=== PATIENT | female | born 1990 | race Caucasian/White ===

== ENCOUNTER → 2017-11-21 | Outpatient (CLI) | payer OTHER ==
[~2017-11-21] MED LIST: BCPILLS PO; IBUP-1050 PO
== END | disposition home or self-care (01) ==
LOC: C.PAPS 09:18
PROVIDERS: ATTEND Physician Assistant
DX: Z12.4 Encounter for screening for malignant neoplasm of cervix (principal)

== ENCOUNTER → 2017-11-21 | Outpatient (CLI) | payer OTHER | END | disposition home or self-care (01) | LOC: C.LABSPEC 17:06 | PROVIDERS: ATTEND Physician Assistant | DX: Z12.4 Encounter for screening for malignant neoplasm of cervix (principal) ==

== ENCOUNTER 2021-06-11 19:27 | Inpatient (IN) ==
[2021-06-11] MEDS ORDERED: OXYTOCIN 30 UNITS/500 ML BAG IV PRN ×2 (19:44)
[2021-06-11] MEDS: LACTATED RINGER'S 1,000 ML IV PRN (20:15)
[2021-06-11 20:34] LABS: Hematocrit (blood only) 39.6 % (37-47); Hemoglobin 13.2 g/dL (12.0-16.0); Mean Corpuscular Hemoglobin 30.7 pg (25-34); Mean Corpuscular Hgb Conc 33.3 g/dL (32-36); Mean Corpuscular Volume 92.1 fL (80-100); Mean Platelet Volume 9.8 fL (7.4-10.4); Platelet Count 293 K/uL (130-400); RDW Coefficient of Variation 14.7 % (11.5-14.5); RDW Standard Deviation 48.2 fL (36.4-46.3)
--- NOTE | 2021-06-11 20:36 | History & Physical Report ---
Date of Service June 11, 2021 Assessment & Plan (1) Supervision of normal first : Plan: Admit to L&D, EFM/toco. Labs, IV. Given cervical change since yesterday and patient's level of pain with ctx, I believe patient is moving into active labor. OK to get epidural, she requests now. If ctx do not pick up attendant, she is agreeable to pitocin to augment. Admission and Anticipated Discharge Date Admission Date: June 11, 2021 History of Present Illness Chief Complaint: contractions, decreased movement Primary Care Provider: Vlad Dickey MD 31yo @ 38 12/30, presents to L&D after calling in with report of decreased movement throughout the day today and ctx Q8 min. She was seen at L&D overnight for r/o labor, discharged home after no cervical change. Upon arrival to L&D, movement was felt. Feeling ctx Q 4-6 min and reporting severe pain, asking for epidural. No vaginal bleeding or leaking fluid. complicated by h/o HSV - is taking prophylaxis, no current outbreak or prodromal symptoms. Allergies Allergy/AdvReac Type Severity Reaction Status Date / Time No Known Allergies Allergy Verified 06/11/21 19:32 Home Medications Medication Instructions Recorded Confirmed Type prenat.vits,nati,ppl-svcy-ufkms 1 tab PO DAILY 10/31/20 06/11/21 History valacyclovir 500 mg tablet 500 mg PO BID #60 tab 05/29/21 06/11/21 Rx (Valtrex) budesonide-formoterol HFA 80 2 puff INHALATION DAILY 06/11/21 06/11/21 History mcg-4.5 mcg/actuation aerosol inhaler (Symbicort) Patient History Medical History Acute sinusitis Encounter for weight management Genital herpes Heart rate fast Plantar warts Raynauds phenomenon Recurrent cold sores Varicella vaccination Surgical History History of tonsillectomy History of tooth extraction Family History Grandmother No problems noted. Grandmother (Paternal) Hypertension Grandfather (Paternal) Diabetes Grandmother (Maternal) Coronary heart disease Breast cancer Lung cancer Denies family history of Ovarian cancer Prostate cancer Myocardial infarction Colorectal cancer Social History Smoking Status: Never smoker Second Hand Exposure: No; Hx Alcohol Use: No Hx Substance Use: No Preferred Language: Hebrew Communication Ability: Effective Lead Network Engineer Required: No Beliefs That Will Affect Care: None marital status: marital status details: Jerod Brambila (29) [phone] Current Living Situation: Spouse Current Living Situation Comment: lives with spouse, no pets current occupational status: employed 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[employer] Other Information That Helps Us Care for You: No Feels Safe at Home: Yes Safety Concerns: Feels Safe At This Time Childhood Exposure to Second-Hand Smoke: No Dental Care, Regularly: Yes Physical Activity Frequency: 1-2 Times per Week Seatbelt Use: always Assistive Devices: Glasses Review of Systems All systems reviewed & are unremarkable except as noted in HPI & below Physical Exam Constitutional: WD/WN, vitals as above Respiratory: normal respiratory effort, lungs clear to auscultation no resp iratory distress Cardiovascular: Rate/Rhythm: regular rate and regular rhythm Gastrointestinal (Abdomen): Inspection/Auscultation: abdomen normal to inspection Percussion/Palpation: abdomen soft; abdomen nontender Gravid. No s/s chorio or abruption. Skin: no rashes, warm and dry Psychiatric: A+Ox3, euthymic affect Genitourinary: No obvious HSV lesions on exam. Cervix 4-5/100/0 Results & Data ([facility]) Vital Signs (Past 12 Hours) Vital Signs Temp Pulse Resp BP 06/11/21 19:32 36.5 C 96 H 20 125/86 06/11/21 19:29 36.5 C 96 H 18 125/86 Monitoring External Monitor FHT cat 1 Blum Q 4-8 min Coding Level of Care Code None Diagnoses Supervision of normal first Z34.00
[2021-06-11] MEDS ORDERED: ePHEDrine sulfate 50 MG/ML AMP ONE (20:39)
[2021-06-11] MEDS ORDERED: SODIUM CHLORIDE 0.9% INJ 10 ML VIAL ONE (20:39)
[2021-06-11] MEDS ORDERED: BUPIVACAINE 0.25% 30 ML VIAL ONE (20:39)
[2021-06-11] MEDS ORDERED: fentaNYL 2MCG/ML ROPIVACAINE 1.25MG/ML 100 ML BAG EPI ONE (20:40)
[2021-06-11] MEDS ORDERED: fentaNYL citrate 100 MCG/2 ML VIAL ONE (20:40)
[2021-06-11] MEDS ORDERED: NALOXONE HCL 0.4 MG/1 ML VIAL/CARP IV PRN (21:08)
[2021-06-11] MEDS ORDERED: diphenhydrAMINE 50 MG/ML VIAL IV PRN (21:08)
[2021-06-11] MEDS ORDERED: fentaNYL 2MCG/ML ROPIVACAINE 1.25MG/ML 100 ML BAG EPI PRN (21:08)
[2021-06-11] MEDS ORDERED: ONDANSETRON INJ 2 MG/ML 2 ML VIAL IV PRN (21:08)
[2021-06-11] MEDS ORDERED: NALBUPHINE HCL INJ 10 MG/ML AMP IV PRN (21:08)
[2021-06-11] MEDS ORDERED: ePHEDrine sulfate 50 MG/ML AMP IV PRN (21:08)
[2021-06-11] MEDS ORDERED: NALOXONE HCL 1 MG in SODIUM CHLORIDE 0.9% 1000ML 1,000 ML IV PRN (21:08)
--- NOTE | 2021-06-11 21:08 | Anesthesiology Consultation ---
Date of Service June 11, 2021 Assessment & Plan ASA ASA2 Proposed Anesthesia Anesthesia Type: Labor Epidural Risk / Benefits Reviewed With: PT / POA / Parent / Guardian, Accepts Plan and Informed Consent Obtained History Height/Weight Height: 5 ft 8 in Weight: 111.13 kg Allergies Allergy/AdvReac Type Severity Reaction Status Date / Time No Known Allergies Allergy Verified 06/11/21 19:32 Medications Home Medications Medication Instructions Recorded Confirmed Last Taken prenat.vits,nati,fgq-wcnv-xodxy 1 tab PO DAILY 10/31/20 06/11/21 06/10/21 08:00 valacyclovir 500 mg tablet 500 mg PO BID #60 tab 05/29/21 06/11/21 06/11/21 18:00 (Valtrex) budesonide-formoterol HFA 80 2 puff INHALATION DAILY 06/11/21 06/11/21 06/10/21 08:00 mcg-4.5 mcg/actuation aerosol inhaler (Symbicort) Active Medications Generic Name Dose Route Start Last Admin Trade Name Freq PRN Reason Stop Dose Admin Lactated Ringer's 1,000 mls @ 125 mls/hr 06/11/21 19:44 06/11/21 20:45 Lr IV 06/13/21 19:43 125 mls/hr .Q8H PRN Infusion L&D Protocol Protocol Past Medical History Medical History Acute sinusitis Encounter for weight management Genital herpes Heart rate fast Plantar warts Raynauds phenomenon Recurrent cold sores Varicella vaccination Exercise / Class Metabolic Activity II 4-5 Yardwork/Stairs/Walk up hill Past Family History Family History Grandmother No problems noted. Grandmother (Paternal) Hypertension Grandfather (Paternal) Diabetes Grandmother (Maternal) Coronary heart disease Breast cancer Lung cancer Denies family history of Ovarian cancer Prostate cancer Myocardial infarction Colorectal cancer Past Surgical History Surgical History History of tonsillectomy History of tooth extraction Past Anesthesia History No Hx of Anesthesia Complications and No Family Hx of Anesthesia Complications History of PONV No Hx of PONV and No Hx of Motion Sickness Social History Smoking Status: Never smoker Hx Alcohol Use: No Hx Substance Use: No substance use type: does not use Review of Systems denies fever/cough/ colds/ chest pain/ SOB/ TERRY denies TERRY Physical Exam Vital Signs Last Vital Signs Temp 36.5 C 06/11/21 19:32 Pulse 106 H 06/11/21 21:53 Resp 20 06/11/21 21:43 BP 125/72 06/11/21 21:53 Pulse Ox 99 06/11/21 21:53 ENMT Mouth: no TMJ abnormality and no dentition abnormality Thyromental Distance: > or= 3.5 Finger Breadths Mallampati Class: II Neck neck extension not limited Respiratory normal respiratory effort; no respiratory distress Auscultation: lungs clear to auscultation bilaterally Cardiovascular Rate/Rhythm: regular rate and regular rhythm Neurologic moves all extremities Psychiatric Orientation: alert and oriented x 3 Testing Laboratory Results 06/11/21 20:14 Blood Type O Positive 06/11/21 20:14 Antibody Screen NEGATIVE 06/11/21 20:14
[2021-06-12] MEDS: LACTATED RINGER'S 1,000 ML IV PRN (01:17)
--- NOTE | 2021-06-12 02:23 | Labor Progress Brief Note ---
Date of Service June 12, 2021 Subjective Comfortable with epidural. FHT Cat 1 Fanshawe Q 2-4 Cervix anterior lip/100/+1 Will continue to labor, begin pushing when patient feels urge. Assessment & Plan Admission and Anticipated Discharge Date Admission Date: June 11, 2021 Results & Data ([facility]) Vital Signs (Past 12 Hours) Vital Signs Temp Pulse Resp BP Pulse Ox 06/12/21 02:18 74 99 06/12/21 02:13 90 98 06/12/21 02:10 81 125/76 06/12/21 02:08 98 H 99 06/12/21 02:03 90 99 06/12/21 02:00 20 06/12/21 01:58 111 H 97 06/12/21 01:55 36.9 C 82 117/63 06/12/21 01:53 91 H 97 06/12/21 01:48 80 99 06/12/21 01:43 66 96 06/12/21 01:40 64 122/72 06/12/21 01:38 93 H 97 06/12/21 01:33 72 97 06/12/21 01:30 16 06/12/21 01:28 74 96 06/12/21 01:25 63 115/65 06/12/21 01:23 68 95 06/12/21 01:22 69 94 06/12/21 01:18 72 96 06/12/21 01:13 88 96 06/12/21 01:10 81 117/65 91 06/12/21 01:08 73 95 06/12/21 01:03 69 95 06/12/21 01:01 73 93 06/12/21 01:00 16 06/12/21 00:58 79 95 06/12/21 00:56 66 114/64 94 06/12/21 00:53 76 96 06/12/21 00:48 87 96 06/12/21 00:46 71 94 06/12/21 00:43 72 97 06/12/21 00:40 69 112/70 06/12/21 00:38 71 95 06/12/21 00:33 79 96 06/12/21 00:30 16 06/12/21 00:28 81 96 06/12/21 00:25 68 116/66 06/12/21 00:23 72 97 06/12/21 00:18 82 99 06/12/21 00:13 79 122/79 98 06/12/21 00:08 96 H 96 06/12/21 00:03 104 H 99 06/12/21 00:00 16 06/11/21 23:58 82 95 06/11/21 23:55 84 129/73 06/11/21 23:53 97 H 95 06/11/21 23:48 73 97 06/11/21 23:46 84 94 06/11/21 23:43 85 97 06/11/21 23:40 77 132/75 06/11/21 23:38 82 94 06/11/21 23:33 79 95 06/11/21 23:32 81 93 06/11/21 23:30 18 06/11/21 23:28 80 96 06/11/21 23:25 86 124/77 06/11/21 23:23 84 95 06/11/21 23:20 89 93 06/11/21 23:18 83 98 06/11/21 23:13 82 96 06/11/21 23:10 87 122/74 06/11/21 23:08 84 97 06/11/21 23:03 85 99 06/11/21 23:00 36.8 C 18 06/11/21 22:58 94 H 99 06/11/21 22:55 84 119/69 06/11/21 22:53 95 H 96 06/11/21 22:48 89 98 06/11/21 22:43 79 97 06/11/21 22:40 78 117/68 06/11/21 22:38 95 H 97 06/11/21 22:33 114 H 98 06/11/21 22:30 18 06/11/21 22:28 97 H 96 06/11/21 22:26 87 94 06/11/21 22:25 74 118/66 06/11/21 22:23 89 96 06/11/21 22:18 79 96 06/11/21 22:13 92 H 96 06/11/21 22:10 81 127/67 93 06/11/21 22:08 99 H 96 06/11/21 22:03 87 97 06/11/21 22:00 18 06/11/21 21:58 110 H 100 06/11/21 21:53 106 H 16 125/72 99 06/11/21 21:49 85 16 120/73 06/11/21 21:48 87 97 06/11/21 21:43 104 H 20 124/59 L 100 06/11/21 21:38 117 H 18 119/73 100 06/11/21 21:33 107 H 128/81 99 06/11/21 21:32 18 06/11/21 21:31 97 H 133/80 06/11/21 21:30 20 06/11/21 21:29 97 H 129/81 06/11/21 21:28 101 H 20 100 06/11/21 21:26 82 20 138/84 06/11/21 21:23 90 99 06/11/21 21:18 90 100 06/11/21 19:32 36.5 C 96 H 20 125/86 06/11/21 19:29 36.5 C 96 H 18 125/86 Coding Level of Care Code None
--- NOTE | 2021-06-12 06:17 | Delivery Summary ---
Vaginal Delivery Summary Date of Service June 12, 2021 Vaginal Delivery Summary and 2nd Degree LAC Vaginal Delivery Summary: Pre-delivery diagnoses: 31yo @ 38 6/7, spontaneous labor Post-delivery diagnoses: same Procedure: spontaneous vaginal delivery, repair of 2nd degree perineal laceration Surgeon: Mimi Gamez DO Complications: none Findings: Viable male . Apgars: 8/9. Weight pending, please see nursery records. Estimated blood loss: 300ml Description of delivery: The patient progressed to complete with epidural anesthesia. She then began to push. She spontaneously vaginally delivered a viable from the cephalic presentation. The head delivered in LYDIA position, then restituted to RUBENS. The anterior shoulder delivered, followed by the posterior shoulder, followed by the body. The baby was placed on mother's abdomen and a spontaneous cry was heard. Delayed cord clamping was employed, and the cord was doubly clamped and cut. Cord blood was obtained. The placenta was delivered spontaneously intact with a 3-vessel cord. The uterus and vagina were swept of clots and debris. IV pitocin was given. The bladder was emptied with a straight catheter. The uterus became firm. The cervix, vagina, and perineum were inspected and a 2nd degree perineal laceration was noted, repaired with 3-0 vicryl in standard fashion. Excellent hemostasis was observed. The mother and baby are recovering in stable and good condition in the room. Sponge, needle and instrument counts were correct x 2. Mimi Gamez DO [facility] [place] Vaginal Delivery Charge Vaginal Delivery Codes: 80548 global code for the antepartum, delivery, and post- Delivery Type Details: and 2nd Degree LAC
[2021-06-12] MEDS ORDERED: BENZOCAINE 20% AER SPR 82.5 GM CAN EXT PRN (06:30)
[2021-06-12] MEDS ORDERED: bisacodyL 10 MG SUPP PR PRN (06:30)
[2021-06-12] MEDS ORDERED: OXYTOCIN 30 UNITS/500 ML BAG IV PRN (06:30)
[2021-06-12] MEDS ORDERED: ACETAMINOPHEN 325 MG TAB PO PRN (06:30)
[2021-06-12] MEDS ORDERED: SUPERCREAM 0.870% 15 GM JAR EXT PRN (06:30)
[2021-06-12] MEDS ORDERED: HYDROCORTISONE ACETATE 25 MG SUPP PR PRN (06:30)
[2021-06-12] MEDS ORDERED: oxyCODONE/ACETAMINOPHEN 5mg/325mg TAB PO PRN (06:30)
[2021-06-12] MEDS ORDERED: DIPHTHERIA/TETANUS/PERTUSSIS 0.5 ML SYR/VIAL IM ONE (06:30)
[2021-06-12] MEDS: PRENATAL VITAMIN 1 TAB PO SCH (08:01)
--- NOTE | 2021-06-12 08:10 | Anesthesia Procedure Note ---
Date of Service June 12, 2021 Anesthesia Post Epidural Note Vital Signs Vital Signs: Temp Pulse Resp BP Pulse Ox 36.4 C L 116 H 18 116/73 98 06/12/21 06:10 06/12/21 07:54 06/12/21 06:40 06/12/21 07:54 06/12/21 06:10 Pain Intensity Back: Pain Intensity: 0 Notes Mental Status: alert / awake / arousable Nausea / Vomiting: adequately controlled Pain: adequately controlled Airway Patency, RR, SpO2: stable & adequate BP & HR: stable & adequate Hydration State: stable & adequate Neuraxial Anesthesia: was administered and sensory block is resolving Anesthetic Complications: no major complications apparent Epidural: Removed without complications and With tip intact
[2021-06-12] MEDS: FLUTICASONE/VILANTEROL 100/25MCG 14 PUFFS/INHALER INH SCH (09:22)
[2021-06-12] MEDS: IBUPROFEN 600 MG TAB PO PRN ×3 (10:20→21:03)
[2021-06-12] MEDS: DOCUSATE SODIUM 100 MG CAP PO SCH ×2 (10:22→21:03)
[2021-06-13] MEDS: IBUPROFEN 600 MG TAB PO PRN (04:01)
[2021-06-13 06:07] LABS: Hematocrit (blood only) 34.9 % (37-47); Hemoglobin 11.7 g/dL (12.0-16.0)
--- NOTE | 2021-06-13 06:41 | Obstetrical Progress Note ---
Date of Service <Bandar Santiago MD - Last Filed: 06/13/21 07:34> June 13, 2021 Assessment & Plan <Bandar Santiago MD - Last Filed: 06/13/21 07:34> (1) Encounter for care and examination after delivery: PPD 1: stable, routine management * pt voiding and ambulating w/o difficulty * pain well controlled on analgesia * tolerating regular diet * bottle-feeding * on Valtrex for history of HSV * anticipate d/c today * 6 week OB outpt f/u <Delmy Ortiz MD, FACOG - Last Filed: 06/13/21 08:09> (1) Encounter for care and examination after delivery: Subjective <Bandar Santiago MD - Last Filed: 06/13/21 07:34> Mayra is a 31-year-old female who is now PPD 1 following spontaneous vaginal delivery at 38.6 weeks. Reports feeling well overall this morning. + Abdominal cramping & minimal pain well managed on analgesics. Voiding +. Tolerating meals well and able to ambulate without difficulty. + Passing gas and has had a bowel movement. Her bleeding is much improved this morning. She is bottle feeding. Review of Systems Denies fever, chills, sweats Denies shortness of breath, difficulty breathing, chest pain, palpitations, chest pressure. Denies breast pain. Denies dysuria. Denies headache or changes in vision Physical Exam <Bandar Santiago MD - Last Filed: 06/13/21 07:34> General: Alert, oriented. No acute distress. Cardiac: Regular rate and rhythm, no murmurs/rubs/gallops. Respiratory: Clear to auscultation bilaterally a/p, no wheezes/rales/rhonchi. No increased work of breathing. Symmetrical chest rise. No respiratory distress. Abdomen: Soft, nontender, nondistended. Bowel sounds present. Uterus: Uterine fundus firm, palpable 1 cm below umbilicus. Lower Extremities: No lower extremity edema or swelling. No deep calf pain. Che's negative bilaterally.. Results & Data ([facility]) <Bandar Santiago MD - Last Filed: 06/13/21 07:34> Vital Signs (Past 12 Hours) Vital Signs Temp Pulse Resp BP Pulse Ox 06/13/21 03:45 36.6 C 84 17 124/87 98 06/12/21 23:30 36.6 C 92 H 16 137/90 97 06/12/21 19:30 36.4 C L 97 H 17 128/86 98 <Delmy Ortiz MD, FACOG - Last Filed: 06/13/21 08:09> Co-Signing Physician Notes Resident Physician Supervision Note: I interviewed and examined the patient. Discussed with Dr. Santiago and agree with findings and plan as documented in the note. Any exceptions or clarifications are listed here: pt doing well, no complaints, eating, voiding, ambulating, bottle feeding. no pain issues. ready to go home. exam cor rrr, lungs ctab, abd soft ff 2 down nt. ext nt calves. ppd #1 s/p . doing well, wants to go home, instructions reviewed. plan 6wk pp check up. bottle, rhpos, ri. Documented By: Delmy Ortiz MD, FACOG Resident Activity Tracking <Bandar Santiago MD - Last Filed: 06/13/21 07:34> Resident Involvement: Resident Care Provided Care Provided: OB Delivery
[2021-06-13] MEDS: FLUTICASONE/VILANTEROL 100/25MCG 14 PUFFS/INHALER INH SCH (08:27)
[2021-06-13] MEDS: PRENATAL VITAMIN 1 TAB PO SCH (08:27)
[2021-06-13] MEDS: DOCUSATE SODIUM 100 MG CAP PO SCH (08:27)
[2021-06-13] MEDS ORDERED: bisacodyL 5 MG TABEC PO SCH (20:00)
== END 2021-06-13 11:05 | disposition home or self-care (01) | DRG 806 ==
LOC: OPB 19:27 → 4S1 19:29 → 4S2 06-12 09:50

== ENCOUNTER 2022-12-19 07:26 | Inpatient (IN) ==
[2022-12-19] MEDS ORDERED: LIDOCAINE 1% LOCAL 20 ML VIAL INFIL PRN (07:29)
[2022-12-19] MEDS ORDERED: OXYTOCIN 30 UNITS/500 ML BAG IV PRN ×3 (07:29→19:14)
--- NOTE | 2022-12-19 08:11 | History & Physical Report ---
Date of Service December 19, 2022 Assessment & Plan (1) Encounter for planned induction of labor: Plan: - Admit to labor and delivery. - De Santiago placed last night and came out at 10pm last night. - Will start Pitocin, consult anesthesiology for epidural placement. - monitoring in place, cat 1 FHTs. (2) Genital herpes: Plan: - On Valtrex, took her medication this morning. (3) Reactive airway disease that is not asthma: Plan: - Continue on Symbicort 2 puffs in the AM. Admission and Anticipated Discharge Date Admission Date: December 19, 2022 History of Present Illness Chief Complaint: Induction of labor Primary Care Provider: Vlad Dickey MD at 39 4/7weeks confirmed via LMP. Here for induction of labor. Cervical de santiago placed last night and came out at 10pm last night. Complications with this include HSV and reactive airway disease. Has been attending OB appointments regularly. Currently taking Symbicort 2 puffs a day, vitamins, and valacyclovir. Contractions: none. Fluid or Blood loss: some blood discharge this morning. So significant fluid loss. Movement: active Labs - Blood type: O+ - Antibody screen: negative - H.4 - Hct: 36.4 - Plt: 355 - Rubella: immune - VDRL/RPR: negative - Gonorrhea: negative - Chlamydia: negative - HIV: negative - HbSAg: negative - GBS: negative - Glucose tolerance x 2: negative Allergies Allergy/AdvReac Type Severity Reaction Status Date / Time No Known Allergies Allergy Verified 12/17/22 15:34 Home Medications Medication Instructions Recorded Confirmed Type prenat.vits,nati,gav-ssze-vbnnt 1 tab PO DAILY 10/31/20 12/19/22 History budesonide-formoterol HFA 80 2 puff inhalation DAILY #10.2 grams 06/29/22 12/19/22 Rx mcg-4.5 mcg/actuation aerosol inhaler (Symbicort) valacyclovir 500 mg tablet 500 mg PO BID #60 tabs 11/12/22 12/19/22 Rx (Valtrex) Patient History Medical History (Updated 12/19/22 @ 08:16 by Dawson Murphy DO) Acute sinusitis Encounter for weight management Genital herpes Heart rate fast Plantar warts Raynauds phenomenon Recurrent cold sores Skin tag Varicella vaccination Surgical History History of tonsillectomy History of tooth extraction Family History Grandmother No problems noted. Grandmother (Paternal) Hypertension Grandfather (Paternal) Diabetes Grandmother (Maternal) Coronary heart disease Breast cancer Lung cancer Denies family history of Ovarian cancer Prostate cancer Myocardial infarction Colorectal cancer Social History (Updated 05/11/22 @ 15:16 by Magdalena Elizondo) Smoking Status: Never smoker Second Hand Exposure: No; Hx Alcohol Use: No Hx Substance Use: No Preferred Language: Grenadian Communication Ability: Effective Conveyor Line Battery Charger Required: No Beliefs That Will Affect Care: None marital status: marital status details: Jerod Brambila (31) [phone] Current Living Situation: Spouse Current Living Situation Comment: lives with spouse, child, cat-spouse changing litter current occupational status: employed 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 Denies breast pain. Denies dysuria. Denies headache or changes in vision. Physical Exam Physical Exam: General: Alert, oriented. No acute distress. Cardiac: Regular rate and rhythm, no murmurs/rubs/gallops. Respiratory: Clear to auscultation bilaterally a/p, no wheezes/rales/rhonchi. No increased work of breathing. Symmetrical chest rise. No respiratory distress. Abdomen: Gravid; cat 1 FHTs; Position: Cephalic Presentation Pelvic: Dilation 4cm; Effacement 50; Station -[address] Gamez Lower Extremities: No lower extremity edema or swelling. No deep calf pain. Che's negative bilaterally Results & Data Vital Signs (Past 12 Hours) Vital Signs Pulse BP 12/19/22 07:43 109 H 133/64 Supervising Physician Co-Signing Physician Notes Resident Physician Supervision Note: I was present with Dr. Murphy during the history and exam. I discussed the case with the resident and agree with the findings and plan as documented in the note. Any exceptions or clarifications are listed here: 32yo @ 39 4, IOL. De Santiago bulb fell out last night. No obvious active HSV outbreak or lesions on exam. Will plan for pitocin induction of labor. OK for epidural when she desires. Documented By: Mimi Gamez DO Resident Activity Tracking Resident Involvement: Resident Care Provided Care Provided: OB Delivery
[2022-12-19 08:41] LABS: Hematocrit (blood only) 36.9 % (37.0-47.0); Hemoglobin 12.7 g/dl (12.0-16.0); Mean Corpuscular Hemoglobin 29.7 pg (25.0-34.0); Mean Corpuscular Hgb Conc 34.4 g/dL (32.0-36.0); Mean Corpuscular Volume 86.4 fL (80.0-100.0); Mean Platelet Volume 9.8 fL (9.4-12.4); Platelet Count 298 K/uL (130-400); RDW Coefficient of Variation 13.6 % (11.5-14.5); RDW Standard Deviation 43.3 fL (36.4-46.3); Red Blood Count 4.27 M/uL (4.20-5.40); White Blood Count 13.78 K/ul (4.8-10.8)
[2022-12-19] MEDS: LACTATED RINGER'S 1,000 ML IV PRN ×3 (09:46→13:35)
[2022-12-19] MEDS ORDERED: BUPIVACAINE 0.25% PF 30 ML VIAL ONE (12:17)
[2022-12-19] MEDS ORDERED: ePHEDrine sulfate 50 MG/ML AMP ONE (12:17)
[2022-12-19] MEDS ORDERED: LIDOCAINE 2%/EPINEPHRINE 1:200,000 20 ML PF ONE (12:17)
[2022-12-19] MEDS ORDERED: SODIUM CHLORIDE 0.9% PF INJ 10 ML VIAL ONE (12:17)
[2022-12-19] MEDS ORDERED: fentaNYL citrate PF 100 MCG/2 ML VIAL ONE (12:17)
[2022-12-19] MEDS ORDERED: fentaNYL 2MCG/ML ROPIVACAINE 1.25MG/ML 100 ML BAG EPI ONE (12:18)
[2022-12-19] MEDS ORDERED: NALOXONE HCL 0.4 MG/1 ML VIAL/CARP IV PRN (12:34)
[2022-12-19] MEDS ORDERED: ONDANSETRON INJ 2 MG/ML 2 ML VIAL IV PRN (12:34)
[2022-12-19] MEDS ORDERED: fentaNYL 2MCG/ML ROPIVACAINE 1.25MG/ML 100 ML BAG EPI PRN (12:34)
[2022-12-19] MEDS ORDERED: NALOXONE HCL 1 MG in SODIUM CHLORIDE 0.9% 1000ML 1,000 ML IV PRN (12:34)
[2022-12-19] MEDS ORDERED: ePHEDrine sulfate 50 MG/ML AMP IV PRN (12:34)
[2022-12-19] MEDS ORDERED: diphenhydrAMINE 50 MG/ML VIAL IV PRN (12:34)
[2022-12-19] MEDS ORDERED: NALBUPHINE HCL INJ 10 MG/ML AMP IV PRN (12:34)
--- NOTE | 2022-12-19 12:37 | Anesthesiology Consultation ---
Date of Service December 19, 2022 Assessment & Plan (1) Encounter for pre-operative examination: Chart Review Chart Review: Patient NOT seen in Pre Admission Testing and Acceptable Risk for Labor Epidural Consults Requested none History Height/Weight Height: 5 ft 8 in Weight: 107.048 kg Allergies Allergy/AdvReac Type Severity Reaction Status Date / Time No Known Allergies Allergy Verified 12/17/22 15:34 Medications Home Medications Medication Instructions Recorded Confirmed Last Taken prenat.vits,nati,nns-ergz-xulqn 1 tab PO DAILY 10/31/20 12/19/22 06/10/21 08:00 budesonide-formoterol HFA 80 2 puff inhalation DAILY #10.2 grams 06/29/22 12/19/22 Unknown mcg-4.5 mcg/actuation aerosol inhaler (Symbicort) valacyclovir 500 mg tablet 500 mg PO BID #60 tabs 11/12/22 12/19/22 12/19/22 (Valtrex) Active Medications Generic Name Dose Route Start Last Admin Trade Name Freq PRN Reason Stop Dose Admin Lactated Ringer's 1,000 mls @ 125 mls/hr 12/19/22 07:29 12/19/22 12:49 Lr IV 12/21/22 07:28 999 mls/hr .Q8H PRN Administration L&D Protocol Protocol Oxytocin 30 units in 500 mls @ 9 mls/hr 12/19/22 07:29 12/19/22 12:10 Pitocin IV 12/21/22 07:28 0.54 units/hr .Q24H PRN 9 mls/hr Labor Induction/Augmentation Titration Protocol 0.54 UNITS/HR Past Medical History Medical History (Updated 12/19/22 @ 12:37 by Garrett Mcallister MD) Acute sinusitis Encounter for pre-operative examination Encounter for weight management Genital herpes Heart rate fast Plantar warts Raynauds phenomenon Recurrent cold sores Skin tag Varicella vaccination Exercise / Class Metabolic Activity II 4-5 Yardwork/Stairs/Walk up hill Past Family History Family History Grandmother No problems noted. Grandmother (Paternal) Hypertension Grandfather (Paternal) Diabetes Grandmother (Maternal) Coronary heart disease Breast cancer Lung cancer Denies family history of Ovarian cancer Prostate cancer Myocardial infarction Colorectal cancer Past Surgical History Surgical History History of tonsillectomy History of tooth extraction Social History Smoking Status: Never smoker Hx Alcohol Use: No Hx Substance Use: No substance use type: does not use Physical Exam Vital Signs Last Vital Signs Temp 36.6 C 12/19/22 11:00 Pulse 93 H 12/19/22 13:03 Resp 18 12/19/22 11:00 BP 125/82 12/19/22 13:03 Pulse Ox 99 12/19/22 13:00 Testing Laboratory Results 12/19/22 08:17
--- NOTE | 2022-12-19 19:07 | Delivery Summary ---
Vaginal Delivery Summary Date of Service December 19, 2022 Vaginal Delivery Summary and 1st Degree LAC Vaginal Delivery Summary: Pre-delivery diagnoses: 32yo @ 39 4/7, eIOL, h/o HSV Post-delivery diagnoses: same Procedure: spontaneous vaginal delivery, repair 1st degree perineal laceration Surgeon: Mimi Gamez DO Complications: none Findings: Viable male . Apgars: 8/9 . Weight pending, please see nursery records Estimated blood loss: 300ml Description of delivery: The patient progressed to complete with epidural anesthesia. She then began to push. She spontaneously vaginally delivered a viable from the cephalic presentation. The head delivered in LYDIA position. The anterior shoulder delivered, followed by the posterior shoulder, followed by the body. No nuchal cord noted. The baby was placed on mother's abdomen and a spontaneous cry was heard. Delayed cord clamping was employed, and the cord was doubly clamped and cut. Cord blood was obtained. The placenta was delivered spontaneously intact with a 3-vessel cord. The uterus and vagina were swept of clots and debris. IV pitocin was given. The uterus became firm. The cervix, vagina, and perineum were inspected and a first degree perineal laceration was noted and repaired in standard fashion with 3-0 Vicryl. Excellent hemostasis was observed. The mother and baby are recovering in stable and good condition in the room. Sponge, needle and instrument counts were correct x 2. Mimi Gamez DO [facility] Vaginal Delivery Charge Vaginal Delivery Codes: 70019 global code for the antepartum, delivery, and post- Delivery Type Details: and 1st Degree LAC
[2022-12-19] MEDS ORDERED: BENZOCAINE 20% AER SPR 82.5 GM CAN EXT PRN (19:14)
[2022-12-19] MEDS ORDERED: oxyCODONE/ACETAMINOPHEN 5mg/325mg TAB PO PRN (19:14)
[2022-12-19] MEDS ORDERED: bisacodyL 10 MG SUPP PR PRN (19:14)
[2022-12-19] MEDS ORDERED: ACETAMINOPHEN 325 MG TAB PO PRN (19:14)
[2022-12-19] MEDS ORDERED: DIPHTHERIA/TETANUS/PERTUSSIS 0.5mL SYR/VIAL (Age 7+yrs) IM ONE (19:14)
[2022-12-19] MEDS ORDERED: HYDROCORTISONE ACETATE 25 MG SUPP PR PRN (19:14)
--- NOTE | 2022-12-19 19:39 | Anesthesia Procedure Note ---
Date of Service December 19, 2022 Anesthesia Post Epidural Note Vital Signs Vital Signs: Temp Pulse Resp BP Pulse Ox 36.6 C 103 H 20 115/67 99 12/19/22 18:20 12/19/22 19:34 12/19/22 18:20 12/19/22 19:34 12/19/22 18:40 Notes Mental Status: alert / awake / arousable and participated in evaluation Patient Amnestic to Procedure: No Nausea / Vomiting: adequately controlled Pain: adequately controlled Airway Patency, RR, SpO2: stable & adequate BP & HR: stable & adequate Hydration State: stable & adequate Neuraxial Anesthesia: was administered and sensory block is resolving Anesthetic Complications: no major complications apparent and Pt Satisfied with anesthetic care Epidural: Removed without complications and With tip intact
[2022-12-19] MEDS: DOCUSATE SODIUM 100 MG CAP PO SCH (21:47)
[2022-12-19] MEDS: IBUPROFEN 600 MG TAB PO PRN (21:47)
[2022-12-20] MEDS: IBUPROFEN 600 MG TAB PO PRN ×4 (03:57→21:21)
[2022-12-20 06:32] LABS: Hematocrit (blood only) 34.7 % (37.0-47.0); Hemoglobin 11.5 g/dl (12.0-16.0)
--- NOTE | 2022-12-20 06:36 | Obstetrical Progress Note ---
Date of Service <Dawson Murphy - Last Filed: 12/20/22 06:56> December 20, 2022 Assessment & Plan <Dawson Murphy - Last Filed: 12/20/22 06:56> (1) Spontaneous vaginal delivery: - Feels well today. Eating well, voiding well, ambulating well. - Pain well controlled with ibuprofen 600mg Q4H PRN - Routine care -- OOB, ambulation, diet progression as tolerated - After discharge will have 6 week follow-up with Dr. Gamez (2) Genital herpes: - On Valtrex prior to delivery. - No active infection at this time. (3) Reactive airway disease that is not asthma: - Continue on Symbicort 2 puffs in the AM. Day #:: 1 <Mimi Gamez, - Last Filed: 12/20/22 08:18> (1) Spontaneous vaginal delivery: (2) Genital herpes: (3) Reactive airway disease that is not asthma: Subjective <Dawson TerryDenisa Delmyadam - Last Filed: 12/20/22 06:56> Ambulation: ambulating normally Voiding: no voiding problems Passing Gas:: Yes Diet Tolerance:: regular diet Lochia:: Small Feeding Type:: bottle feeding Current Pain Level(1-10): 0 Review of Systems Denies fever, chills, sweats Denies shortness of breath, difficulty breathing, chest pain, palpitations, chest pressure. Denies breast pain. Denies dysuria. Denies headache or changes in vision. Physical Exam <Dawson TerryDenisa DelmyDO adam - Last Filed: 12/20/22 06:56> General: Alert, oriented. No acute distress. Cardiac: Regular rate and rhythm, no murmurs/rubs/gallops. Respiratory: Clear to auscultation bilaterally a/p, no wheezes/rales/rhonchi. No increased work of breathing. Symmetrical chest rise. No respiratory distress. Abdomen: Soft, nontender, nondistended. Bowel sounds present. Uterus: Uterine fundus firm, palpable 1 cm below umbilicus. Lower Extremities: No lower extremity edema or swelling. No deep calf pain. Che's negative bilaterally. Results & Data <Dawson TerryDenisa Murphy DO - Last Filed: 12/20/22 06:56> Vital Signs (Past 12 Hours) Vital Signs Temp Pulse Pulse Resp BP BP Pulse Ox 12/20/22 04:15 36.3 C L 86 16 116/83 97 12/20/22 00:10 36.3 C L 90 17 127/81 99 12/19/22 21:10 36.7 C 100 H 16 123/63 98 12/19/22 21:01 100 H 123/63 12/19/22 20:49 102 H 125/66 12/19/22 20:34 115 H 124/60 12/19/22 20:19 121 H 131/61 12/19/22 19:49 113 H 117/78 12/19/22 19:34 103 H 115/67 12/19/22 19:19 102 H 115/67 12/19/22 19:04 36.8 C 96 H 16 114/69 12/19/22 18:49 93 H 128/66 12/19/22 18:40 122 H 99 12/19/22 18:36 88 125/88 O2 Del Method 12/20/22 04:15 Room Air 12/20/22 00:10 Room Air 12/19/22 21:10 Room Air 12/19/22 21:01 12/19/22 20:49 12/19/22 20:34 12/19/22 20:19 12/19/22 19:49 12/19/22 19:34 12/19/22 19:19 12/19/22 19:04 12/19/22 18:49 12/19/22 18:40 12/19/22 18:36 <Mimi Gamez, - Last Filed: 12/20/22 08:18> Co-Signing Physician Notes Resident Physician Supervision Note: I was present with Dr. Murphy during the history and exam. I discussed the case with the resident and agree with the findings and plan as documented in the note. Any exceptions or clarifications are listed here: PPD#1 doing well, anticipate DC home tomorrow. Documented By: Mimi Gamez DO Resident Activity Tracking <Dawson Murphy DO - Last Filed: 12/20/22 06:56> Resident Involvement: Resident Care Provided Care Provided: OB Delivery
[2022-12-20] MEDS: PRENATAL VITAMIN 1 TAB PO SCH (08:49)
[2022-12-20] MEDS: DOCUSATE SODIUM 100 MG CAP PO SCH ×2 (08:49→21:21)
[2022-12-20] MEDS: FLUTICASONE/VILANTEROL 100/25MCG 14 PUFFS/INHALER INH SCH (08:51)
[2022-12-20] MEDS ORDERED: bisacodyL 5 MG TABEC PO SCH (20:00)
[2022-12-21] MEDS: IBUPROFEN 600 MG TAB PO PRN (04:48)
--- NOTE | 2022-12-21 06:52 | Obstetrical Progress Note ---
Date of Service <Dawson MDenisa Murphy DO - Last Filed: 12/21/22 06:53> December 21, 2022 Assessment & Plan <Dawson TerryDenisa uMrphy DO - Last Filed: 12/21/22 06:53> (1) Spontaneous vaginal delivery: - Feels well today. Eating well, voiding well, ambulating well. - Pain well controlled with ibuprofen 600mg Q4H PRN - Routine care -- OOB, ambulation, diet progression as tolerated - After discharge will have 6 week follow-up with Dr. Gamez - Will d/c at this time. (2) Genital herpes: - On Valtrex prior to delivery. - No active infection at this time. (3) Reactive airway disease that is not asthma: - Continue on Symbicort 2 puffs in the AM. Day #:: 2 <Naga Greenwood MD, FACOG - Last Filed: 12/21/22 07:07> (1) Spontaneous vaginal delivery: (2) Genital herpes: (3) Reactive airway disease that is not asthma: Subjective <Dawson Murphy DO - Last Filed: 12/21/22 06:53> Ambulation: ambulating normally Voiding: no voiding problems Passing Gas:: Yes Diet Tolerance:: regular diet Lochia:: Small Feeding Type:: bottle feeding Current Pain Level(1-10): 1 Review of Systems Denies fever, chills, sweats Denies shortness of breath, difficulty breathing, chest pain, palpitations, chest pressure. Denies breast pain. Denies dysuria. Denies headache or changes in vision. Physical Exam <Dawson Murphy DO - Last Filed: 12/21/22 06:53> General: Alert, oriented. No acute distress. Cardiac: Regular rate and rhythm, no murmurs/rubs/gallops. Respiratory: Clear to auscultation bilaterally a/p, no wheezes/rales/rhonchi. No increased work of breathing. Symmetrical chest rise. No respiratory distress. Abdomen: Soft, nontender, nondistended. Bowel sounds present. Uterus: Uterine fundus firm, palpable 2 cm below umbilicus. Lower Extremities: No lower extremity edema or swelling. No deep calf pain. Che's negative bilaterally. Results & Data <DO Satna Kim Last Filed: 12/21/22 06:53> Vital Signs (Past 12 Hours) Vital Signs Temp Pulse Resp BP Pulse Ox O2 Del Method 12/20/22 23:16 36.5 C 73 16 115/73 98 Room Air 12/20/22 19:18 36.4 C L 82 18 126/85 98 Room Air <Naga Greenwood MD, FACOG - Last Filed: 12/21/22 07:07> Co-Signing Physician Notes Resident Physician Supervision Note: I was present with Dr. Murphy during the history and exam. I discussed the case with the resident and agree with the findings and plan as documented in the note. Any exceptions or clarifications are listed here: [None] Documented By: Naga Greenwood MD, FACOG Resident Activity Tracking <Dawson Murphy DO - Last Filed: 12/21/22 06:53> Resident Involvement: Resident Care Provided Care Provided: OB Delivery
[2022-12-21] MEDS: DOCUSATE SODIUM 100 MG CAP PO SCH (08:00)
[2022-12-21] MEDS: PRENATAL VITAMIN 1 TAB PO SCH (08:00)
[2022-12-21] MEDS: FLUTICASONE/VILANTEROL 100/25MCG 14 PUFFS/INHALER INH SCH (08:14)
== END 2022-12-21 09:40 | disposition home or self-care (01) | DRG 807 ==
LOC: 4S1 07:26 → 4E2 22:00